=== PATIENT | female | born 1955 | race Caucasian/White ===

== ENCOUNTER → 2020-11-08 | Outpatient (CLI) | payer MEDICARE, OTHER ==
[~2020-11-08] MED LIST: ASPIRIN EC81 MG PO; ATORVASTATIN CA20 MG PO; CLARITIN 10MG T10 MG PO; CYCLOBENZAPRINE5 MG PO; FAMOTIDINE20 MG PO; FLEXERIL 10 MG10 MG PO; GABAPENTIN600 MG PO; HYDROCODON-ACE1 EAC2 PO; IBUPROFEN800 MG PO; LAMOTRIGINE25 MG PO; LODINE CAP 300300 MG PO; MONTELUKAST SOD10 MG PO; MYCOSTATIN CREA15 GM TOP; NORFLEX 100 MG100 MG PO; NORVASC 5 MG TAB5 MG PO; NYSTATIN60 GM TP; PHENERGAN 25 MG25 M1 PO; PRIMIDONE50 MG PO; TIZANIDINE HCL4 MG PO; ULTRAM50 MG PO; VENLAFAXINE H37.5 M1 PO; VITAMIN D31250 MCG PO; VOLTAREN100 GM TP
== END ==
LOC: RAD 12:46
DX: R07.81 Pleurodynia (principal); J06.9 Acute upper respiratory infection, unspecified; J43.9 Emphysema, unspecified
CPT/HCPCS: 71046

== ENCOUNTER → 2021-02-20 | Outpatient (CLI) | payer MEDICARE, OTHER | LOC: KOH-I 15:35 | DX: S90.811A Abrasion, right foot, initial encounter (principal); M79.671 Pain in right foot; Z98.890 Other specified postprocedural states | CPT/HCPCS: 73630 ==

== ENCOUNTER → 2021-09-16 | Outpatient (CLI) | payer MEDICARE, OTHER | LOC: KOH-I 09-10 08:00 | DX: R10.9 Unspecified abdominal pain (principal) | CPT/HCPCS: 76700 ==

== ENCOUNTER → 2021-09-30 | Outpatient (CLI) | payer MEDICARE, OTHER | LOC: MRI 08:40 | DX: R16.0 Hepatomegaly, not elsewhere classified (principal); K76.89 Other specified diseases of liver | CPT/HCPCS: 36415; 74183; 82565; A9577 ==

== ENCOUNTER → 2022-03-17 | Outpatient (CLI) | payer MEDICARE | LOC: KOH-I 15:40 | DX: F17.210 Nicotine dependence, cigarettes, uncomplicated (principal) | CPT/HCPCS: 71271 ==

== ENCOUNTER → 2022-05-06 | Outpatient (CLI) | payer MEDICARE, OTHER | LOC: NM 04-10 14:00 | DX: R10.13 Epigastric pain (principal) | CPT/HCPCS: 78264; A9541 ==